=== PATIENT | male | born 1995 | race Caucasian/White ===

== ENCOUNTER 2022-03-24 14:56 | Emergency (ER) | payer OTHER ==
[~2022-03-24] VITALS: Ht 160 cm; Wt 65.8 kg
[2022-03-24 15:40] VITALS: BP 138/88
--- NOTE | 2022-03-24 15:40 | NUR ---
ARLENE C/O RIGHT ANKLE INJURED DURING A MONTH AGO GOT REINJURED THIS MORNING DOING SAME ACTIVITY
--- NOTE | 2022-03-24 15:57 | NUR ---
CALLED TO ROOM IN,NO ANSWER
--- NOTE | 2022-03-24 17:13 | NUR ---
Patient discharged to home in stable condition. Written and verbal after care instructions given. Patient verbalizes understanding of instruction.
== END 2022-03-24 17:14 | disposition home or self-care (01) ==
LOC: ER 14:57
DX: S93.401A Sprain of unspecified ligament of right ankle, initial encounter (principal); X58.XXXA Exposure to other specified factors, initial encounter; Y93.89 Activity, other specified; Y92.89 Other specified places as the place of occurrence of the external cause; Y99.8 Other external cause status
CPT/HCPCS: 73610-TC